=== PATIENT | male | born 1990 | race Caucasian/White ===

== ENCOUNTER 2017-03-11 21:02 | Emergency (ER) | payer OTHER ==
[~2017-03-11] VITALS: Ht 188 cm; Wt 108.9 kg
[2017-03-11 21:05] VITALS: BP_SYST 121
[2017-03-11] MEDS ORDERED: DIPH-TET-PERTUS Vaccine 0.5 ML VIAL (ADACEL) I.M. ONE (21:45)
[2017-03-11 22:15] VITALS: BP_SYST 138
== END 2017-03-11 22:15 ==
LOC: SED 21:02
DX: S50.812A Abrasion of left forearm, initial encounter (principal); F10.10 Alcohol abuse, uncomplicated; V47.5XXA Car driver injured in collision with fixed or stationary object in traffic accident, initial encounter; Y93.89 Activity, other specified; Y92.410 Unspecified street and highway as the place of occurrence of the external cause; Y99.8 Other external cause status
CPT/HCPCS: 90715; 99283